=== PATIENT | female | born 1980 | race African-American/Black ===

== ENCOUNTER 2018-09-14 19:44 | Emergency (ER) | payer SELFPAY, OTHER | END 2018-09-14 20:26 | disposition home or self-care (01) | LOC: JERFT 19:44 ==

== ENCOUNTER 2018-11-04 22:58 | Emergency (ER) | payer OTHER ==
[2018-11-04 23:11] VITALS: BP 140/109; PULSE 90; BMI 25.0
[2018-11-04] MEDS ORDERED: METHOCARBAMOL 500 MG TABLET PO ONE (23:55)
[2018-11-04] MEDS ORDERED: KETOROLAC TROMETHAMINE 60 MG/2 ML VIAL IM ONE (23:55)
[2018-11-05] MEDS ORDERED: METHOCARBAMOL 500 MG TABLET ONE (00:03)
[2018-11-05] MEDS ORDERED: KETOROLAC TROMETHAMINE 60 MG/2 ML VIAL ONE (00:04)
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
== END 2018-11-05 01:08 | disposition left against medical advice (07) ==
LOC: JER 22:58
PROC: 3E0233Z Introduction of Anti-inflammatory into Muscle, Percutaneous Approach (ICD-10-PCS; principal; 2018-11-04)
DX: M54.5 Low back pain (principal); V43.52XA Car driver injured in collision with other type car in traffic accident, initial encounter; Y93.89 Activity, other specified; Y92.410 Unspecified street and highway as the place of occurrence of the external cause
CPT/HCPCS: 84703; 99282-25

== ENCOUNTER 2018-12-06 08:36 | Emergency (ER) | payer SELFPAY ==
[2018-12-06 08:46] VITALS: BP 107/83; PULSE 85; TEMP 98.2; BMI 25.0
[2018-12-06] MEDS ORDERED: DIPHTH,PERTUSS(ACELL),TET 0.5 ML DISP.SYRIN IM ONE (09:00)
--- NOTE | 2018-12-06 09:16 | PDOC ---
History of Present Illness - General Chief Complaint: Laceration Stated Complaint: LAC LT THUMB Time Seen by Provider: 12/06/18 09:01 History Source: Patient Exam Limitations: No Limitations Past History - Travel Traveled outside of the country in the last 30 days: No Close contact w/someone who was outside of country & ill: No - Past Medical History Allergies/Adverse Reactions: Allergies Allergy/AdvReac Type Severity Reaction Status Date / Time No Known Allergies Allergy Verified 12/06/18 08:46 Home Medications: Ambulatory Orders NK [No Known Home Medication] 12/06/18 COPD: No - Immunization History Immunization Up to Date: No - Suicide/Smoking/Psychosocial Hx Smoking History: Never smoked Have you smoked in the past 12 months: No Hx Alcohol Use: No Drug/Substance Use Hx: No Review of Systems - Review of Systems Able to Perform ROS?: Yes Comments:: 12/06/18 09:15 CONSTITUTIONAL: Absent: fever, chills, diaphoresis, generalized weakness, malaise, loss of appetite MUSCULOSKELETAL: Absent: myalgia, arthralgia, joint swelling SKIN: Present: laceration Absent: rash, itching, pallor HEMATOLOGIC/IMMUNOLOGIC: Absent: easy bleeding, easy bruising, lymphadenopathy, frequent infections NEUROLOGIC: Absent: headache, focal weakness or paresthesias, dizziness, unsteady gait, seizure, mental status changes, bladder or bowel incontinence PSYCHIATRIC: Absent: anxiety, depression, suicidal or homicidal ideation, hallucinations. Is the patient limited [place] proficient: No *Physical Exam - Vital Signs Last Vital Signs Temp Pulse Resp BP Pulse Ox 98.2 F 85 18 107/83 96 12/06/18 08:42 12/06/18 08:42 12/06/18 08:42 12/06/18 08:42 12/06/18 08:42 - Physical Exam Comments: 12/06/18 09:16 GENERAL: The patient is awake, alert, and fully oriented, in no acute distress. HEAD: Normal with no signs of trauma. EYES: Pupils equal, round and reactive to light, extraocular movements intact, sclera anicteric, conjunctiva clear. EXTREMITIES: Normal range of motion, no edema. NEUROLOGICAL: Normal speech, normal gait. PSYCH: Normal mood, normal affect. SKIN: 2 cm superficial laceration over the left thumb pad. Warm, Dry, normal turgor, no rashes or lesions noted. Procedures - Laceration/Wound Repair Left 1st digit Wound Length: to 2.5 cm Wound Explored: clean, no foreign body present Wound's Depth, Shape: superficial, linear Irrigated w/ Saline: Yes Betadine Prep: Yes Wound Repaired With: Dermabond Sterile Dressing Applied: Yes Medical Decision Making - Medical Decision Making 12/06/18 09:16 The patient is a 38-year-old female who presents to the ER with a laceration to her left thumb. She states that she got the cut this morning on a tin can. She does not remember the date of her last tetanus shot. Bleeding is controlled in the ER. She can move her thumb in all directions. Denies numbness and tingling and weakness to the affected extremity. Patient is right- hand dominant. A/P: Laceration On exam superficial laceration to the left thumb pad approximately 2 cm. The wound is approximately the depth of the paper cut. Wound was cleaned under high pressure normal saline Dermabond applied Tetanus shot updated; unable to place order in computer as it says double entry. Verbal order given to [facility] [place] Discharge home with wound care instructions I discussed the physical exam findings, ancillary test results and final diagnoses with the patient. I answered all of the patient's questions. The patient was satisfied with the care received and felt comfortable with the discharge plan and treatment plan. The Patient agrees to follow up with the primary care physician/specialist within 24-72 hours. Return precautions were given. *DC/Admit/Observation/Transfer Diagnosis at time of Disposition: Laceration - Discharge Dispostion Disposition: HOME Condition at time of disposition: Stable Decision to Admit order: No - Referrals Referrals: Ten Laguna MD [Staff Physician] - - Patient Instructions Printed Discharge Instructions: DI for Laceration Repair With Dermabond Additional Instructions: You had your cut fixed today with Dermabond (glue). This will fall off on its own in 3-4 days Keep the area clean and dry for 24 hours Your tetanus shot was updated today. Avoid soaking the hand. Keep it dry when showering. Pat dry after washing. You may take Tylenol or Motrin as needed for pain. Follow the dosing instructions on the bottle Return to the emergency department sooner if you have area of redness around the site, purulent drainage, fevers, or have any changes in your symptoms. - Post Discharge Activity Forms/Work/School Notes: Back to Work
== END 2018-12-06 09:29 | disposition home or self-care (01) ==
LOC: JERFT 08:36
PROC: 0HQGXZZ Repair Left Hand Skin, External Approach (ICD-10-PCS; principal; 2018-12-06)
DX: S61.012A Laceration without foreign body of left thumb without damage to nail, initial encounter (principal); W26.8XXA Contact with other sharp object(s), not elsewhere classified, initial encounter; Y93.89 Activity, other specified; Y92.89 Other specified places as the place of occurrence of the external cause; Y99.8 Other external cause status
CPT/HCPCS: 99281-25